=== PATIENT | female | born 1990 | race Caucasian/White ===

== ENCOUNTER 2018-05-01 18:02 | Emergency (ER) | payer SELFPAY ==
[2018-05-01] MEDS ORDERED: NA CHLORIDE 0.9% 1,000 ML ONE (19:22)
[2018-05-01 19:37] LABS: Absolute Lymphocytes (CBC) 2.8 K/uL (0.7-4.9); Absolute Monocytes 0.7 K/uL (0.1-1.3); Absolute Neutrophil 4.6 K/uL (1.8-8.0); Basophils % 1.2 % (0-1.3); Hematocrit 44.2 % (36.0-45.0); Lymphocytes % 33.4 % (15.3-44.8); MPV 8.6 fL (7.6-11.3); Monocytes % 8.5 % (3.3-12.3); RBC Red Blood Cell Count 5.18 M/uL (3.86-4.86)
[2018-05-01 19:53] LABS: Urine Blood NEGATIVE (NEG); Urine Glucose NEGATIVE (NEG); Urine Protein 1+ (NEG)
[2018-05-01 20:09] LABS: Urine Bacteria LOADED /HPF (<20); Urine Culture Reflex Order NOT NEEDED; Urine RBC <5 /HPF (NONE SEEN)
[2018-05-01 20:14] LABS: Albumin 4.2 g/dL (3.4-5.0); Bilirubin Direct 0.2 mg/dL (0-0.2); Bilirubin Total 0.8 mg/dL (0.2-1.0); Potassium 3.2 mmol/L (3.5-5.1); Protein, Total 8.5 g/dL (6.4-8.2)
--- NOTE | 2018-05-01 20:49 | RAD REPORT ---
EXAM DESCRIPTION: CT - Abdomen Pelvis W Contrast - 05/01/2018 8:22 pm CLINICAL HISTORY: Abdominal pain/epigastric pain COMPARISON: none. TECHNIQUE: Computed axial tomography of the abdomen pelvis was obtained. 100 cc Isovue-300 was admin istered intravenously. Oral contrast was not requested which limits evaluation of bowel. All CT scans are performed using dose optimization technique as appropriate and may include automated exposure control or mA/KV adjustment according to patient size. FINDINGS: The liver, spleen, pancreas, adrenal and kidneys appear unremarkable. There is no evidence of diverticulitis. The appendix is retrocecal and normal caliber. A 2 centimeter irregularly-shaped left ovarian cyst likely has recently ruptured with a small amount of free fluid in the pelvis. Bilateral tubal ligation coils are noted. Fluid is present within nondilated small bowel IMPRESSION: A 2 centimeter irregularly-shaped left ovarian cyst likely has recently ruptured with a small amount of free fluid in the pelvis Fluid within nondilated small bowel may indicate an enteritis
--- NOTE | 2018-05-01 21:22 | ER ---
Nurse's Notes [facility] Name: Kenzie Rodriguez Age: 27 yrs Sex: Female : 1990 Arrival Date: 05/01/2018 Time: 18:04 Bed 14 Private MD: JEANE PICHARDO Diagnosis: Unspecified abdominal pain Presentation: 05/01 18:04 Presenting complaint: Patient states: epigastric pain constant throughout the day and sv pain gets worse at night and vomiting/diarrhea x 8 days. Has been seen at [facility] but they were not able to figure out what was wrong. Transition of care: patient was not received from another setting of care. Onset of symptoms was April 23, 2018. Care prior to arrival: None. 18:04 Method Of Arrival: Ambulatory sv 18:04 Acuity: PIA 3 sv 19:15 Risk Assessment: Do you want to hurt yourself or someone else? Patient reports no cc3 desire to harm self or others. Initial Sepsis Screen: Does the patient meet any 2 criteria? No. Patient's initial sepsis screen is negative. Does the patient have a suspected source of infection? No. Patient's initial sepsis screen is negative. Triage Assessment: 19:15 General: Appears in no apparent distress. comfortable, Behavior is calm, cooperative, cc3 appropriate for age. Historical: - Allergies: 18:06 Amoxicillin; sv - PMHx: 18:06 None; sv - PSHx: 18:06 Essure; sv - Immunization history:: Adult Immunizations up to date. - Social history:: Smoking status: Patient/guardian denies using tobacco. - Ebola Screening: : No symptoms or risks identified at this time. Screenin:43 Abuse screen: Denies threats or abuse. Denies injuries from another. Nutritional aj1 screening: No deficits noted. Tuberculosis screening: No symptoms or risk factors identified. 19:15 Fall Risk Ambulatory Aid- None/Bed Rest/Nurse Assist (0 pts). Gait- Normal/Bed cc3 Rest/Wheelchair (0 pts) Mental Status- Oriented to own ability (0 pts). Assessment: 18:43 General: Appears in no apparent distress. comfortable. Pain: Complains of pain in aj1 epigastric area Pain currently is 4 out of 10 on a pain scale. Neuro: Level of Consciousness is awake, alert, obeys commands, Oriented to person, place, time, situation. Cardiovascular: Patient's skin is warm and dry. Respiratory: Airway is patent Respiratory effort is even, unlabored, Respiratory pattern is regular, symmetrical. GI: Abdomen is flat, non-distended, Bowel sounds present X 4 quads. Abd is soft and non tender X 4 quads. Reports upper abdominal pain, diarrhea, nausea, vomiting. : No signs and/or symptoms were reported regarding the genitourinary system. EENT: No signs and/or symptoms were reported regarding the EENT system. Derm: No signs and/or symptoms reported regarding the dermatologic system. Skin is pink, warm \T\ dry. normal. Musculoskeletal: No signs and/or symptoms reported regarding the musculoskeletal system. Circulation, motion, and sensation intact. 19:15 Reassessment: Patient appears in no apparent distress at this time. Patient and/or cc3 family updated on plan of care and expected duration. Pain level reassessed. Patient is alert, oriented x 3, equal unlabored respirations, skin warm/dry/pink. Received this female patient from morning shift JERRY Hayes as a case of abdominal pain still for IV cannulation and phlebotomy. 20:29 Reassessment: Patient appears in no apparent distress at this time. Patient and/or cc3 family updated on plan of care and expected duration. Pain level reassessed. Patient is alert, oriented x 3, equal unlabored respirations, skin warm/dry/pink. Patient came back from CT scan department, awaiting result. 21:44 Reassessment: Patient appears in no apparent distress at this time. Patient and/or cc3 family updated on plan of care and expected duration. Pain level reassessed. Patient is alert, oriented x 3, equal unlabored respirations, skin warm/dry/pink. ZAHRAA Martinez discharged the patient home with prescription given. IV cannula removed and patient left ER vitally stable and ambulatory with her family. Vital Signs: 18:06 BP 132 / 92; Pulse 80; Resp 18; Temp 99; Pulse Ox 99% ; Weight 84.37 kg; Height 5 ft. 3 sv in. (160.02 cm); Pain 4/10; 19:41 BP 121 / 87; Pulse 76; Resp 19 S; Pulse Ox 100% on R/A; cc3 20:30 BP 118 / 73; Pulse 79; Resp 18 S; Pulse Ox 100% on R/A; cc3 21:08 BP 117 / 90; Pulse 81; Resp 19 S; Pulse Ox 99% on R/A; cc3 18:06 Body Mass Index 32.95 (84.37 kg, 160.02 cm) sv ED Course: 18:04 Patient arrived in ED. sb2 18:04 JEANE PICHARDO is Private Physician. sb2 18:06 Triage completed. sv 18:06 Arm band placed on. sv 18:08 Abigail Callaway, JERRY is Primary Nurse. aj1 18:09 Juan Naylor NP is PHCP. pm1 18:09 Tracie Magdaleno MD is Attending Physician. pm1 18:39 Radiology exam delayed due to lab results not completed at this time. (BUN/Creatinine) vm2 test not completed at this time. 18:43 Patient has correct armband on for positive identification. aj1 18:43 No provider procedures requiring assistance completed. aj1 19:30 Inserted saline lock: 20 gauge in right forearm, using aseptic technique. ds4 19:42 Radiology exam delayed due to lab results not completed at this time. (BUN/Creatinine) vm2 test not completed at this time. 19:47 Radiology exam delayed due to lab results not completed at this time. (BUN/Creatinine). vm2 20:15 Patient moved to [place] via wheelchair. eh 20:19 CT completed. Patient tolerated procedure well. eh 20:22 Patient moved back from [place]. eh 21:20 Anirudh Bello MD is Referral Physician. pm1 21:44 IV discontinued, intact, bleeding controlled, No redness/swelling at site. Pressure cc3 dressing applied. Administered Medications: 19:30 Drug: NS 0.9% 1000 ml Route: IV; Rate: 1000 ml; Site: right forearm; cc3 20:45 Follow up: Response: No adverse reaction; IV Status: Completed infusion; IV Intake: cc3 1000ml 21:30 Drug: ProTONIX 40 mg Route: IVP; Site: right forearm; cc3 21:44 Follow up: Response: No adverse reaction cc3 Intake: 20:45 IV: 1000ml; Total: 1000ml. cc3 Outcome: 21:21 Discharge ordered by . pm1 21:44 Patient left the ED. cc3 21:44 Discharged to home ambulatory, with family. cc3 21:44 Condition: stable 21:44 Discharge instructions given to patient, family, Instructed on discharge instructions, follow up and referral plans. medication usage, Demonstrated understanding of instructions, follow-up care, medications, Prescriptions given X 1. Signatures: Abigail Callaway RN RN aj1 Mariama Townsend RN RN Marvel Carroll Donovan ds4 Juan Naylor, ZAHRAA QUARRY PLANT CRUSHER OPERATOR pm1 Liset Stephens 2 Olive Sandoval sb2 Dana Thomas cc3
--- NOTE | 2018-05-01 21:22 | EDPHYS ---
Physician Documentation [facility] Name: Kenzie Rodriguez Age: 27 yrs Sex: Female : 1990 Arrival Date: 05/01/2018 Time: 18:04 Bed 14 Private MD: JEANE PICHARDO ED Physician Tracie Magdaleno HPI: 05/01 18:35 This 27 yrs old Female presents to ER via Ambulatory with complaints of pm1 Abdominal Pain. 18:35 The patient presents with abdominal pain in the epigastric area. Onset: The pm1 symptoms/episode began/occurred 8 day(s) ago. The symptoms do not radiate. Associated signs and symptoms: Pertinent positives: nausea, vomiting, and diarrhea, Pertinent negatives: blood in stools, chest pain, dysuria, fever, shortness of breath, vomiting blood. The symptoms are described as burning. Modifying factors: The symptoms are alleviated by avoiding solid foods. the symptoms are aggravated by food. Severity of pain: in the emergency department the pain has improved. The patient has not experienced similar symptoms in the past. The patient has been recently seen by a physician: the patient's primary care provider, earlier today, Contacted the ER to request patient to be evaluated with CT scan. Patient has been seen at [facility] ER 04/27/2018 and 04/30/2018. Labs were negative at both visits. Had RUQ ultrasound and XR Acute Abdomen series that were both negative. Historical: - Allergies: 18:06 Amoxicillin; sv - PMHx: 18:06 None; sv - PSHx: 18:06 Essure; sv - Immunization history:: Adult Immunizations up to date. - Social history:: Smoking status: Patient/guardian denies using tobacco. - Ebola Screening: : No symptoms or risks identified at this time. ROS: 18:35 Constitutional: Negative for fever, chills, and weight loss, Eyes: Negative for injury, pm1 pain, redness, and discharge, ENT: Negative for injury, pain, and discharge, Neck: Negative for injury, pain, and swelling, Cardiovascular: Negative for chest pain, palpitations, and edema, Respiratory: Negative for shortness of breath, cough, wheezing, and pleuritic chest pain. 18:35 Back: Negative for injury and pain, : Negative for injury, bleeding, discharge, and swelling, MS/Extremity: Negative for injury and deformity, Skin: Negative for injury, rash, and discoloration, Neuro: Negative for headache, weakness, numbness, tingling, and seizure. 18:35 Abdomen/GI: Positive for abdominal pain, nausea, vomiting, and diarrhea, Negative for constipation, hematemesis, black/tarry stool. Exam: 18:35 Constitutional: This is a well developed, well nourished patient who is awake, alert, pm1 and in no acute distress. Head/Face: Normocephalic, atraumatic. Eyes: Pupils equal round and reactive to light, extra-ocular motions intact. Lids and lashes normal. Conjunctiva and sclera are non-icteric and not injected. Cornea within normal limits. Periorbital areas with no swelling, redness, or edema. ENT: Nares patent. No nasal discharge, no septal abnormalities noted. Tympanic membranes are normal and external auditory canals are clear. Oropharynx with no redness, swelling, or masses, exudates, or evidence of obstruction, uvula midline. Mucous membranes moist. Neck: Trachea midline, no thyromegaly or masses palpated, and no cervical lymphadenopathy. Supple, full range of motion without nuchal rigidity, or vertebral point tenderness. No Meningismus. Chest/axilla: Normal chest wall appearance and motion. Nontender with no deformity. No lesions are appreciated. Cardiovascular: Regular rate and rhythm with a normal S1 and S2. No gallops, murmurs, or rubs. No pulse deficits. Respiratory: Lungs have equal breath sounds bilaterally, clear to auscultation and percussion. No rales, rhonchi or wheezes noted. No increased work of breathing, no retractions or nasal flaring. Abdomen/GI: Soft, non-tender, with normal bowel sounds. No distension or tympany. No guarding or rebound. No evidence of tenderness throughout. Back: No spinal tenderness. No costovertebral tenderness. Full range of motion. Skin: Warm, dry with normal turgor. Normal color with no rashes, no lesions, and no evidence of cellulitis. MS/ Extremity: Pulses equal, no cyanosis. Neurovascular intact. Full, normal range of motion. 18:35 Neuro: Orientation: is normal, Motor: is normal, moves all fours, Sensation: is normal, no obvious gross deficits, Gait: is steady, at a normal pace, without difficulty. Vital Signs: 18:06 BP 132 / 92; Pulse 80; Resp 18; Temp 99; Pulse Ox 99% ; Weight 84.37 kg; Height 5 ft. 3 sv in. (160.02 cm); Pain 4/10; 19:41 BP 121 / 87; Pulse 76; Resp 19 S; Pulse Ox 100% on R/A; cc3 20:30 BP 118 / 73; Pulse 79; Resp 18 S; Pulse Ox 100% on R/A; cc3 21:08 BP 117 / 90; Pulse 81; Resp 19 S; Pulse Ox 99% on R/A; cc3 18:06 Body Mass Index 32.95 (84.37 kg, 160.02 cm) sv MDM: 18:09 Patient medically screened. pm1 18:21 ED course: Patient currently without any nausea. Offered pain medication. Patient pm1 refused since she is currently not having pain. 18:43 Data reviewed: vital signs. Data interpreted: Pulse oximetry: on room air is 99 %. pm1 Interpretation: normal. 21:10 Differential diagnosis: appendicitis, cholecystitis, Cholelithiasis, gastritis, pm1 gastroesophageal reflux disease, pancreatitis, Peptic Ulcer Disease, Perf. Duodenal Ulcer, Perf. Gastric Ulcer. 21:20 Counseling: I had a detailed discussion with the patient and/or guardian regarding: the pm1 historical points, exam findings, and any diagnostic results supporting the discharge/admit diagnosis, lab results, radiology results, the need for outpatient follow up, for definitive care, a elevated guard, to return to the emergency department if symptoms worsen or persist or if there are any questions or concerns that arise at home. 21:20 ED course: Patient has protonix, bentyl, zofran, and tramadol prescriptions. She pm1 requested addditional zofran ODT. 05/01 18:21 Order name: Basic Metabolic Panel pm1 05/01 18:21 Order name: CBC with Diff pm1 05/01 18:21 Order name: Creatinine for Radiology pm1 05/01 18:21 Order name: Hepatic Function pm1 05/01 18:21 Order name: Lipase pm1 05/01 19:21 Order name: Urine Microscopic Only ds4 05/01 19:21 Order name: Urine Dipstick--Ancillary (enter results) ds4 05/01 19:21 Order name: Urine --Ancillary (enter results) ds4 05/01 19:50 Order name: CBC with Automated Diff; Complete Time: 19:51 EDMS 05/01 19:53 Order name: Urine --Ancillary; Complete Time: 19:59 EDMS 05/01 19:53 Order name: Urine Dipstick-Ancillary; Complete Time: 19:59 EDMS 05/01 20:05 Order name: Creatinine (Radiology Only); Complete Time: 20:16 EDMS 05/01 20:09 Order name: Urine Microscopic Only; Complete Time: 20:16 EDMS 05/01 20:14 Order name: Basic Metabolic Panel; Complete Time: 20:16 EDMS 05/01 18:21 Order name: IV Saline Lock; Complete Time: 19:32 pm05/01 18:21 Order name: Labs collected and sent; Complete Time: 19:32 pm05/01 18:21 Order name: Urine Dipstick-Ancillary (obtain specimen); Complete Time: 19:21 pm05/01 18:21 Order name: Urine Test (obtain specimen); Complete Time: 19:21 pm05/01 18:21 Order name: CT Abd/Pelvis - W/Contrast: IV contrast only 05/01 20:14 Order name: Liver (Hepatic) Function; Complete Time: 20:16 EDMS 05/01 20:14 Order name: Lipase; Complete Time: 20:16 EDMS 05/01 20:50 Order name: CT; Complete Time: 20:50 EDMS Administered Medications: 19:30 Drug: NS 0.9% 1000 ml Route: IV; Rate: 1000 ml; Site: right forearm; cc3 20:45 Follow up: Response: No adverse reaction; IV Status: Completed infusion; IV Intake: cc3 1000ml 21:30 Drug: ProTONIX 40 mg Route: IVP; Site: right forearm; cc3 21:44 Follow up: Response: No adverse reaction cc3 Disposition: 05/01/18 21:21 Discharged to Home. Impression: Unspecified abdominal pain. - Condition is Stable. - Discharge Instructions: Abdominal Pain, Adult. - Prescriptions for Zofran ODT 4 mg Oral tablet,disintegrating - place 1 tablet by TRANSLINGUAL route every 8 hours As needed; 20 tablet. - Medication Reconciliation Form, Thank You Letter, Prescription Opioid Use form. - Follow up: Emergency Department; When: As needed; Reason: Worsening of condition. Follow up: Anirudh Bello MD; When: 2 - 3 days; Reason: Recheck today's complaints, Continuance of care, Re-evaluation by your physician. - Problem is new. - Symptoms have improved. Addendum: 05/04/2018 07:03 Co-signature as Attending Physician, Tracie Magdaleno MD. m a2 Signatures: Dispatcher [employer] EDMariama Butterfield RN RN sv Juan Naylor, STAFF WRITER STAFF WRITER pm1 Tracie Magdaleno MD MD ma2 Dana Thomas cc3 Corrections: (The following items were deleted from the chart) 05/01 21:44 21:21 05/01/2018 21:21 Discharged to Home. Impression: Unspecified abdominal pain. cc3 Condition is Stable. Forms are Medication Reconciliation Form, Thank You Letter, Antibiotic Education, Prescription Opioid Use. Follow up: Emergency Department; When: As needed; Reason: Worsening of condition. Follow up: Anirudh Bello; When: 2 - 3 days; Reason: Recheck today's complaints, Continuance of care, Re-evaluation by your physician. Problem is new. Symptoms have improved. pm1
[2018-05-01] MEDS ORDERED: PANTOPRAZOLE 40 MG INJ ONE (21:38)
== END 2018-05-01 21:44 | disposition home or self-care (01) ==
LOC: ER 18:02
DX: R10.9 Unspecified abdominal pain (principal); Z88.1 Allergy status to other antibiotic agents
CPT/HCPCS: 36415; 74177; 80048; 80076; 81003; 81015; 81025; 83690; 85025; 96361; 96374; 99284; C9113; J7030; Q9967

== ENCOUNTER 2024-07-17 05:43 | Emergency (ER) | payer BC ==
--- OUTSIDE RECORDS SUMMARY | 2024-07-17 05:45 | XMS REPORT | Continuity of Care Document ---
Author Name Unknown Address [address] [facility] [address] [facility] [address] [place] [address] [facility] Address [address] [facility] [address] [place] [address] Care Team Providers Care Lead Net Software Developer Name Role Phone None, None Primary Care Physician Unavailab Ivette Pinon PA-C Attending Clinician [phone] IVETTE LOPEZ Attending Clinician Unavailable Unknown, Attending Attending Clinician Unavailab Jennifer Penn RN Attending Clinician Unavailable BRENNA ASHLEY Attending Clinician Unavailab Tabitha Paz Attending Clinician [phone] Brenna Corbett Attending Clinician Fang Valadez RN Attending Clinician Unavailab le Doctor Unassigned, Tillar Attending Clinician U Nayeli Etienne APRN Attending Cli nician Payers Payer Name Policy Type Policy Number Effective Date Expirati on Date Source Problems Condition Name Condition Details Condition Category Status Onset Date Resolution Date Last Treatment Date Treating Clinician Comments Source Anxiety and depression Anxiety and depression Disease Active 10-02 00:00: 00 [facility] Allergies, Adverse Reactions, Alerts Allergy Name Allergy Type Status Severity Reaction(s) Onset Date Inactive Date Treating Clinician Comments Source Amoxicil kristie Propensi ty to adverse reaction s Active 10-10 00:00: 00 [facility] PAROXETI NE HCL DRUG INGREDI Active Other-Cmnt 10-02 00:00: 00 [facility] Paroxeti ne Hcl Propensi ty to adverse reaction s Active Other - See comments 10-02 00:00: 00 shaking [facility] AMOXICIL KRISTIE DRUG INGREDI Active Hives 04-27 00:00: 00 [facility] Amoxicil kristie Propensi ty to adverse reaction s Active Hives 04-27 00:00: 00 [facility] Social History Social Habit Start Date Stop Date Quantity Comments Source [facility] function 2024-04-01 00:00:00 2024-04-01 00:00:00 [facility] Exposure to SARS-CoV-2 (event) 2021-10-22 00:00:00 2021-11-01 14:24:00 Not sure [facility] Alcohol intake 2021-11-01 00:00:00 2021-11-01 00:00:00 Current non-drinker of alcohol (finding) [facility] Alcoholic beverage intake 2021-11-01 00:00:00 2021-11-01 00:00:00 Current non-drinker of alcohol (finding) [facility] Tobacco use and exposure 2021-11-01 00:00:00 2021-11-01 00:00:00 Smokeless tobacco non-user [facility] Sex assigned at 1990 00:00:00 1990 00:00:00 [facility] Smoking Status Start Date Stop Date Source Never smoked tobacco [facility] Medications Ordered Medication Name Filled Medication Name Start Date Stop Date Current Medication? Ordering Clinician Indication Dosage Frequency Signature (SIG) Comments Components Source metroNIDAZO LE 500 mg tablet 2023-04 00:00: 00 Yes [id number] 500mg Take 1 tablet by mouth every 12 (twelve) hours. [facility] lidocaine 2 % mucosal jelly 2023-04 00:00: 00 Yes [id number] .5[in_u s] Apply 0.5 Inches to area(s) in the morning and 0.5 Inches at noon and 0.5 Inches in the evening. [facility] valACYclovi r (VALTREX) 1 gram tablet 2023-04 00:00: 00 04-09 05:59 :00 No [id number] 1g Take 1 tablet by mouth in the morning and 1 tablet at noon and 1 tablet in the evening. Do all this for 7 days. [facility] No known medications 10-10 15:28: 13 No No known medication [facility] BUSPIRONE 15 mg tablet 11-09 00:00: 00 Yes [id number] TAKE 1/2 TO 1 TABLET BY MOUTH TWICE DAILY [facility] BUPROPION XL 150 mg 24 hr tablet 11-09 00:00: 00 Yes [id number] 150mg TAKE 1 TABLET BY MOUTH DAILY [facility] Vital Signs Vital Name Observation Time Observation Value Comments S [facility] Systolic blood pressure 2024-04-02 02:25:00 111 mm[Hg] [facility] Diastolic blood pressure 2024-04-02 02:25:00 78 mm[Hg] [facility] Heart rate 2024-04-02 02:25:00 90 /min [facility] Body temperature 2024-04-02 02:25:00 36.78 Maryellen [facility] Respiratory rate 2024-04-02 02:25:00 18 /min [facility] Body height 2024-04-02 02:25:00 152.4 cm [facility] Body weight 2024-04-02 02:25:00 61.508 kg [facility] BMI 2024-04-02 02:25:00 26.48 kg/m2 [facility] Oxygen saturation in Arterial blood by Pulse oximetry 2024-04-02 02:25:00 98 /min [facility] Systolic blood pressure 2021-11-01 19:26:00 105 mm[Hg] [facility] Diastolic blood pressure 2021-11-01 19:26:00 76 mm[Hg] [facility] Heart rate 2021-11-01 19:26:00 116 /min [facility] Body temperature 2021-11-01 19:26:00 37.11 Maryellen [facility] Respiratory rate 2021-11-01 19:26:00 16 /min [facility] Body height 2021-11-01 19:26:00 160 cm [facility] Body weight 2021-11-01 19:26:00 93.214 kg [facility] BMI 2021-11-01 19:26:00 36.40 kg/m2 [facility] Oxygen saturation in Arterial blood by Pulse oximetry 2021-11-01 19:26:00 98 /min [facility] acute [facility] Systolic blood pressure 2021-10-10 20:30:00 118 mm[Hg] [facility] Diastolic blood pressure 2021-10-10 20:30:00 84 mm[Hg] [facility] Heart rate 2021-10-10 20:30:00 78 /min [facility] Body temperature 2021-10-10 20:30:00 36.67 Maryellen [facility] Body weight 2021-10-10 20:30:00 [facility] Procedure Date / Time Performed Performing Clinician Source POCT TEST 2024-04-02 02:31:00 Jim Lopez [facility] POCT MOLECULAR STREP 2021-11-01 19:29:00 Leland Ashley [facility] ASSIGNMENT OF BENEFITS 2021-11-01 19:15:22 Docto r Unassigned, Tillar [facility] SURESWAB ADVANCED VAGINITIS PLUS, TMA 2021-10-10 21:24:00 Nayeli Hale [facility] THINPREP TIS PAP RFLX HPV MRNA E6/E7,C. TRACH, N. GONORRHOEAE 2021-10-10 21:23:00 Nayeli Hale [facility] Encounters Start Date/Time End Date/Time Encounter Type Admission Type Attending Clinicians Care Facility Care Department Encounter ID Source 2024-04-06 00:00:00 2024-04-07 13:13:47 [facility] 1..840.114 350.1.13.10 4.2.7.2.686 [id number] [facility] 2024-04-02 00:00:00 2024-04-02 15:17:47 Case Management Ivette Lopez [facility] 1..840.114 350.1.13.10 4.2.7.2.686 [id number] [facility] 2024-04-01 20:20:00 2024-04-01 20:44:57 Outpatient R IVETTE LOPEZ [facility] [id number] [facility] 2024-04-01 20:20:00 2024-04-01 20:44:57 Urgent Care Ivette Lopez Unknown, [facility] 1..840.114 350.1.13.10 4.2.7.2.686 [id number] [facility] 2021-11-02 00:00:00 2021-11-02 00:00:00 Telephone Jennifer Silva [facility] 1..840.114 350.1.13.10 4.2.7.2.686 [id number] [facility] 2021-11-01 14:00:00 2021-11-01 15:19:56 Outpatient R BRENNA ASHLEY [facility] [id number] [facility] 2021-11-01 14:00:00 2021-11-01 14:20:00 Urgent Care Tabitha He Kimberly J [facility] 1..840.114 350.1.13.10 4.2.7.2.686 [id number] [facility] 2021-11-01 00:00:00 2021-11-01 00:00:00 Telephone Fang Valadez Meagen [facility] 1.2.840.114 350.1.13.58 9.2.7.2.686 [id number] [facility] 2021-11-01 00:00:00 2021-11-01 00:00:00 Orders Only Doctor Unassigned, Tillar [facility] 1.2.840.114 350.1.13.10 4.2.7.2.686 [id number] [facility] 2021-10-22 00:00:00 2021-10-22 00:00:00 Telephone Fang Valadez Meagen [facility] 1.2.840.114 350.1.13.58 9.2.7.2.686 [id number] [facility] 2021-10-12 00:00:00 2021-10-12 00:00:00 Telephone Fang Valadez Meagen [facility] 1.2.840.114 350.1.13.58 9.2.7.2.686 [id number] [facility] 2021-10-10 15:30:00 2021-10-10 16:24:31 Office Visit Nayeli Hale Y[facility] 1.2.840.114 350.1.13.58 9.2.7.2.686 [id number] [facility] Results Test Description Test Time Test Comments Results Result Co mments Source [facility] [id number] 19:39:04* Test Item Value Reference Range Interpretation Comme nts POCT Molecular Strep (test c ode = 06074-4) Negative Negative Lab Interpretation (test cod e = 97728-5) Normal [facility] T[facility] PAP RFLX HPV MRNA E6/E7,C. TRACH, N. [id number] 20:00:00* Test Item Value Reference Range Interpretation Comments CLINICAL INFORMATION: (test code = 64492-2) SEE NOTE None given LMP: (test code = 8665-2) SEE NOTE NONE GIVEN PREV. PAP: (test code = 26246-7) SEE NOTE NONE GIVEN PREV. BX: (test code = 29956-6) SEE NOTE NONE GIVEN SOURCE: (test code = 91913-4) SEE NOTE None given STATEMENT OF ADEQUACY: (test code = 77036-8) SEE NOTE Satisfactory for evaluation.Endocervic al/transformation zone componentpresent.Age and/or menstrual status not provided INTERPRETATION/RE SULT: (test code = 18777-2) SEE NOTE Negative for intraepithelial lesion or malignancy. COMMENT: (test code = 44885-6) SEE NOTE This Pap test loera s been evaluated with computerassisted technology. FILM EXAMINER: (test code = 69829-5) SEE NOTE DXG, CT(ASCP) 3 HOUR SPECIMEN (test code = 059701798) SEE NOTE EXPLANATORY NOTE : The Pap is a screening test for cervical cancer. It is not a diagnostic test and is subject to false negative and false positive results. It is most reliable when a satisfactory sample, regularly obtained, is submitted with relevant clinical findings and history, and when the Pap result is evaluated along with historic and current clinical information. CHLAMYDIA TRACHOMATIS RNA, TMA, UROGENITAL (test code = 38321-6) NOT DETECTED NOT DETECTED NEISSERIA GONORRHOEAE RNA, TMA, UROGENITAL (test code = 37355-9) NOT DETECTED NOT DETECTED (Always Message) (test code = 941617002) SEE NOTE The analytical performance characteristics of thisassay, when used to test SurePath(TM) specimens have beendetermined by [employer]. The modifications havenot been cleared or approved by the FDA. This assay hasbeen validated pursuant to the CLIA regulations and isused for clinical purposes. For additional information, please refer totps://education.[employer].Velti/f aq/WCC935(This link is being provided for information/education al purposes only.) ANCELMO (test code = ANCELMO) Performing Organization Information: ? ?Site ID: [id number] ? ?Name: [facility] ? ?Address: [address] [place] [address] [place] [address] ? ?Director: BRANDON YANES MD [facility] ADVANCED VAGINITIS PLUS, [id number] 09:00:00* Test Item Value Reference Range Interpretation Comme nts SURESWAB ADVANCED BACTERIAL VAGINOSIS (BV), (test code = 14532-3) POSITIVE NEGATIVE A LAZARA: (test code = 91813-8) NOT DETECTED NOT DETECTED Lazara glabrata, MAHSA (test code = 44707-1) NOT DETECTED NOT DETECTED Lazara species C. albicans, C. tropicalis,C. parapsilosis, and/or C. dubliniensis can be detected,but not differentiated, in the Lazara spp. result. SURESWAB(R) TRICHOMONAS VAGINALIS RNA, QL, TMA (test code = 56800-8) NOT DETECTED NOT DETECTED CHLAMYDIA TRACHOMATIS RNA, TMA, UROGENITAL (test code = 00247-8) NOT DETECTED NOT DETECTED NEISSERIA GONORRHOEAE RNA, TMA, UROGENITAL (test code = 18334-9) NOT DETECTED NOT DETECTED For additional information, please refer tohttps://educati on.[employer]/faq/XIA769 (This link is being provided for information/educa tional purposes only.) RAC (test code = RAC) Performing Organization Information: ? ?Site ID: [id number] ? ?Name: [facility] ? ?Address: [address] [place] [address] [place] [address] ? 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 If after completion sx do not improve, pt to rtc. Please inform patient. Thank you, Ivette Lopez PA-C [facility] 2024-04-06 14:52:21 Patient is returning a call she missed from the clinic [facility]
[2024-07-17 07:21] LABS: Absolute Basophils 0.1 K/uL (0-0.5); Absolute Eosinophils 0.2 K/uL (0-0.5); Absolute Lymphocytes (CBC) 1.3 K/uL (0.7-4.9); Absolute Monocytes 0.5 K/uL (0.1-1.3); Basophils % 1.4 % (0-1.3); Eosinophils % 2.5 % (0-4.4); Hemoglobin 10.1 g/dL (12.0-15.0); Lymphocytes % 16.1 % (15.3-44.8); MCH 23.8 pg (27.0-35.0); MCHC 32.6 g/dL (32.0-36.0); MCV 73.1 fL (80-100); MPV 9.4 fL (7.6-11.3); Monocytes % 6.4 % (3.3-12.3); Neutrophils % 73.6 % (41.7-73.7); Nucleated Red Blood Cells % 0.1 % (0-0); Platelets 270 thou/uL (152-406); RBC Red Blood Cell Count 4.23 M/uL (3.86-4.86); Red Cell Distribution Width 15.5 % (12.1-15.2)
[2024-07-17 07:25] LABS: Specific Gravity 1.007 (1.005-1.030); Sqamous Epithelial <5 /HPF (None Seen); Urine Bacteria <20 /HPF (<20); Urine Bilirubin NEGATIVE (Negative); Urine Blood Negative (Negative); Urine Clarity Clear (Clear); Urine Color Colorless (Yellow); Urine Culture Reflex Order NOT NEEDED; Urine Glucose NEGATIVE (Negative); Urine Ketones NEGATIVE (Negative); Urine Micro Reflex YN NO BILL MICROSCOPIC; Urine Nitrite NEGATIVE (Negative); Urine Protein NEGATIVE (Negative); Urine RBC <5 /HPF (None Seen); Urine Urobilinogen Normal (Normal); Urine WBC <5 /HPF (<5)
[2024-07-17 07:26] LABS: Specific Gravity 1.007 (1.005-1.030)
[2024-07-17 07:35] LABS: Anion Gap 7.8 mEq/L (5.0-15.0); Potassium 3.8 mEq/L (3.5-5.1); Troponin High Sensitivity 3.1 pg/mL (<58.9)
[2024-07-17] MEDS ORDERED: ONDANSETRON 4 MG/2 ML VIAL ONE (07:37)
[2024-07-17] MEDS ORDERED: KETOROLAC 30 MG/ML INJ ONE (07:37)
--- NOTE | 2024-07-17 07:41 | RAD REPORT ---
Procedure: Chest Pa And Lat (2 Views) HISTORY: Chest pain COMPARISON: none FINDINGS: The lungs appear clear of acute infiltrate. No significant pleural effusion noted. The heart is normal size. IMPRESSION: No acute abnormality is displayed.
--- NOTE | 2024-07-17 08:11 | ER ---
Nurse's Notes [facility] Name: Kenzie Rodriguez Age: 34 yrs Sex: Female : 1990 Arrival Date: 07/17/2024 Time: 05:43 Bed 14 Private MD: Diagnosis: Chest wall pain Presentation: 07/17 06:04 Chief complaint: Patient states: chest pain that woke her up from her sleep. States cp4 pain travels down the left arm. Coronavirus screen: Client denies travel out of the [place] in the last 14 days. At this time, the client does not indicate any symptoms associated with coronavirus-19. Ebola Screen: Patient negative for fever greater than or equal to 101.5 degrees Fahrenheit, and additional compatible Ebola Virus Disease symptoms Patient denies exposure to infectious person. Patient denies travel to an Ebola-affected area in the 21 days before illness onset. No symptoms or risks identified at this time. Initial Sepsis Screen: Does the patient meet any 2 criteria? No. Patient's initial sepsis screen is negative. Does the patient have a suspected source of infection? No. Patient's initial sepsis screen is negative. Risk Assessment: Do you want to hurt yourself or someone else? Patient reports no desire to harm self or others. Onset of symptoms was July 17, 2024 at 04:30. 06:04 Method Of Arrival: Ambulatory cp4 06:04 Acuity: PIA 3 cp4 Triage Assessment: 06:06 General: Appears in no apparent distress. uncomfortable, Behavior is calm, cooperative, cp4 appropriate for age. Pain: Complains of pain in chest Pain radiates to left arm Pain currently is 6 out of 10 on a pain scale. EENT: No signs and/or symptoms were reported regarding the EENT system. Neuro: Level of Consciousness is awake, alert, obeys commands, Oriented to person, place, time, situation. Cardiovascular: Patient's skin is warm and dry. Rhythm is sinus rhythm. Respiratory: Airway is patent Respiratory effort is even, unlabored. GI: No signs and/or symptoms were reported involving the gastrointestinal system. : No signs and/or symptoms were reported regarding the genitourinary system. Derm: No signs and/or symptoms reported regarding the dermatologic system. Musculoskeletal: No signs and/or symptoms reported regarding the musculoskeletal system. 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 - Infectious Disease History:: Denies. - Social history:: Smoking status: Patient denies any tobacco usage or history of. - Family history:: not pertinent. Screenin:[address] [facility] ED Fall Risk Assessment (Adult) History of falling in the last 3 months, cp4 including since admission No falls in past 3 months (0 pts) Confusion or Disorientation No (0 pts) Intoxicated or Sedated No (0 pts) Impaired Gait No (0 pts) Mobility Assist Device Used No (0 pt) Altered Elimination No (0 pt) Score/Fall Risk Level 0 - 2 = Low Risk Oriented to surroundings, Maintained a safe environment, Assessed \T\ reinforced patient's understanding of fall precautions, Hourly rounding (assess needs \T\ fall precautionary measures) done. Abuse screen: Denies threats or abuse. Denies injuries from another. Nutritional screening: No deficits noted. Tuberculosis screening: No symptoms or risk factors identified. Assessment: 06:08 Pain: Pain radiates to left arm Pain began 1 hour ago. Cardiovascular: Patient's skin cp4 is warm and dry. Rhythm is sinus rhythm. 08:05 Reassessment: Patient appears in no apparent distress at this time. Patient is alert, bp oriented x 3, equal unlabored respirations, skin warm/dry/pink. Vital Signs: 06:04 BP 107 / 75; Pulse 75; Resp 16; Temp 97.8; Pulse Ox 100% ; Weight 62.14 kg; Height 5 cp4 ft. 3 in. ; Pain 6/10; 08:04 BP 113 / 68; Pulse 64; Resp 16; Pulse Ox 99% ; bp 06:04 Body Mass Index 24.27 (62.14 kg, 160.02 cm) cp4 06:04 Pain Scale: Adult cp4 ED Course: 05:45 Patient arrived in ED. jj6 06:04 Nirmala Mosher is Primary Nurse. cp4 06:06 Triage completed. cp4 06:06 Arm band placed on right wrist. Patient placed in waiting room. cp4 06:08 Bed in low position. Call light in reach. Side rails up X 1. Client placed on cp4 continuous cardiac and pulse oximetry monitoring. NIBP monitoring applied. case monitor on. Pulse ox on. NIBP on. 06:08 No provider procedures requiring assistance completed. Patient maintains SpO2 cp4 saturation greater than 95% on room air. 06:14 EKG done, by ED staff. hw 06:54 Missed attempt(s): 22 gauge in left antecubital area. cp4 06:54 Missed attempt(s): 22 gauge in right antecubital area. cp4 07:04 XRAY Chest Pa And Lat (2 Views) In Process Unspecified. EDMS 07:04 Rico Galicia MD is Attending Physician. rt 07:09 Initial lab(s) drawn, by me, sent to lab. Inserted saline lock: 22 gauge in left bp forearm, using aseptic technique. Blood collected. 08:21 IV discontinued, intact, bleeding controlled, No redness/swelling at site. Pressure bp dressing applied. 08:22 Provided Education on: NA. bp Administered Medications: 07:15 Drug: Ketorolac IVP 15 mg IVP once Route: IVP; Site: left forearm; bp 07:40 Follow up: Response: No adverse reaction bp 07:15 Drug: Ondansetron IVP 4 mg IVP once; over 2 minutes Route: IVP; Site: left forearm; bp 07:40 Follow up: Response: No adverse reaction bp Medication: 06:08 VIS not applicable for this client. cp4 Outcome: 08:11 Discharge ordered by . rt 08:21 Discharged to home ambulatory, with family, bp 08:21 Condition: stable 08:21 Discharge instructions given to patient, Instructed on discharge instructions, follow up and referral plans. Demonstrated understanding of instructions, follow-up care, 08:22 Patient left the ED. bp Signatures: Dispatcher [employer] EDRI Arvind Bobo, RN RN bp Angelica Valdivia jj6 Rico Galicia MD MD rt Nirmala Mosher cp4 Priyanka Alcantar
--- NOTE | 2024-07-17 08:11 | EDPHYS ---
Physician Documentation [facility] Name: Kenzie Rodriguez Age: 34 yrs Sex: Female : 1990 Arrival Date: 07/17/2024 Time: 05:43 Bed 14 Private MD: ED Physician Rico Galicia HPI: 07/17 10:36 This 34 yrs old Female presents to ER via Ambulatory with complaints of Chest Pain, rt Shortness Of Breath, Chest Wall Pain. 10:36 Patient presents to the ED with a left-sided chest pain that radiated down her arm, rt worse with deep inspiration. Reports some mild dyspnea. Denies other acute complaints at this time, symptoms are moderate in severity, no other aggravating or alleviating factors.. 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 - Infectious Disease History:: Denies. - Social history:: Smoking status: Patient denies any tobacco usage or history of. - Family history:: not pertinent. ROS: 10:36 Constitutional: Negative for fever, chills, and weight loss, Abdomen/GI: Negative for rt abdominal pain, nausea, vomiting, diarrhea, and constipation, MS/Extremity: Negative for injury and deformity, Skin: Negative for injury, rash, and discoloration, Neuro: Negative for headache, weakness, numbness, tingling, and seizure, 10:36 Cardiovascular: Positive for chest pain, Negative for edema, 10:36 Respiratory: Positive for shortness of breath, Negative for cough, Exam: 10:36 Constitutional: This is a well developed, well nourished patient who is awake, alert, rt and in no acute distress. Head/Face: Normocephalic, atraumatic. Cardiovascular: Regular rate and rhythm with a normal S1 and S2. No gallops, murmurs, or rubs. Normal PMI, no JVD. No pulse deficits. Respiratory: Lungs have equal breath sounds bilaterally, clear to auscultation and percussion. No rales, rhonchi or wheezes noted. No increased work of breathing, no retractions or nasal flaring. Abdomen/GI: Soft, non-tender, with normal bowel sounds. No distension or tympany. No guarding or rebound. No evidence of tenderness throughout. Skin: Warm, dry with normal turgor. Normal color with no rashes, no lesions, and no evidence of cellulitis. MS/ Extremity: Pulses equal, no cyanosis. Neurovascular intact. Full, normal range of motion. Neuro: Awake and alert, GCS 15, oriented to person, place, time, and situation. Cranial nerves II-XII grossly intact. Motor strength 5/5 in all extremities. Sensory grossly intact. Cerebellar exam normal. Normal gait. 10:36 Chest/axilla: Palpation over anterior chest wall reproduces chest pain. 10:36 ECG was reviewed by the Attending Physician. Vital Signs: 06:04 BP 107 / 75; Pulse 75; Resp 16; Temp 97.8; Pulse Ox 100% ; Weight 62.14 kg; Height 5 cp4 ft. 3 in. ; Pain 6/10; 08:04 BP 113 / 68; Pulse 64; Resp 16; Pulse Ox 99% ; bp 06:04 Body Mass Index 24.27 (62.14 kg, 160.02 cm) cp4 06:04 Pain Scale: Adult cp4 MDM: 07:10 Medical Screening Exam initiated rt 10:36 Differential diagnosis: Chest wall pain, pneumonia, pneumothorax, ACS. HEART Score: rt History: Slightly Suspicious (0), ECG: Normal (0), Age: < or = 45 years (0), Risk Factors: No Risk Factors Known (0), Troponin: < or = 1 x Normal Limit (0), Total Score = 0. Data reviewed: vital signs, nurses notes, lab test result(s), EKG, radiologic studies. I considered the following discharge prescriptions or medication management in the emergency department Medications were administered in the Emergency Department. See MAR. Independent interpretation of the following test(s) in the Emergency Department X-Ray: My interpretation is No infiltrate seen on interpretation of x-ray images. Test considered but Not performed: CT: Low suspicion for PE, PE RC negative, CT angiogram not indicated to rule out pulmonary embolus. Counseling: I had a detailed discussion with the patient and/or guardian regarding the historical points, exam findings, and any diagnostic results supporting the discharge/admit diagnosis, lab results, radiology results, the need for outpatient follow up, to return to the emergency department if symptoms worsen or persist or if there are any questions or concerns that arise at home. Response to treatment: the patient's symptoms have markedly improved after treatment. 07/17 06:37 Order name: Basic Metabolic Panel; Complete Time: 07:57 3 07/17 06:37 Order name: CBC with Diff; Complete Time: 07:57 07/17 06:37 Order name: Troponin HS; Complete Time: 07:57 3 07/17 06:37 Order name: Urinalysis W/Microscopic; Complete Time: 07:57 07/17 06:37 Order name: Test, Urine; Complete Time: 07:57 07/17 06:38 Order name: XRAY Chest Pa And Lat (2 Views); Complete Time: 07:57 3 07/17 06:37 Order name: Cardiac monitoring; Complete Time: 06:38 3 07/17 06:37 Order name: EKG - Nurse/Tech; Complete Time: 06:38 [facility] 07/17 06:37 Order name: IV Saline Lock; Complete Time: 07:08 07/17 06:37 Order name: Labs collected and sent; Complete Time: 07:08 07/17 06:37 Order name: O2 Per Protocol; Complete Time: 06:38 3 07/17 06:37 Order name: O2 Sat Monitoring; Complete Time: 06:38 lg3 EC:36 Rate is 75 beats/min. Rhythm is regular, Normal Sinus Rhythm with No ectopy. QRS [place] rt is Normal. MA interval is normal. QRS interval is normal. QT interval is normal. No Q waves. T waves are Normal. No ST changes noted. Interpreted by me. Administered Medications: 07:15 Drug: Ketorolac IVP 15 mg IVP once Route: IVP; Site: left forearm; bp 07:40 Follow up: Response: No adverse reaction bp 07:15 Drug: Ondansetron IVP 4 mg IVP once; over 2 minutes Route: IVP; Site: left forearm; bp 07:40 Follow up: Response: No adverse reaction bp Disposition Summary: 07/17/24 08:11 Discharge Ordered Notes: Location: Home rt Problem: new rt Symptoms: have improved rt Condition: Stable rt Diagnosis - Chest wall pain rt Followup: rt - With: Private Physician - When: 2 - 3 days - Reason: Discharge Instructions: - Discharge Summary Sheet rt - Chest Wall Pain rt Forms: - Medication Reconciliation Form rt - Antibiotic Education rt - Prescription Opioid Use rt - Patient Portal Instructions rt - Leadership Thank You Letter rt Signatures: Dispatcher [employer] Arvind Rosario, RN RN Iliana Taylor RN RN lg3 Rico Galicia MD MD rt Nirmala Mosher cp4 Corrections: (The following items were deleted from the chart) 06:37 06:37 BASIC METABOLIC PANEL+C.LAB.BRZ ordered. EDMS EDMS 06:37 06:37 CBC+H.LAB.BRZ ordered. EDMS EDMS 06:37 06:37 Troponin High Sensitivity+C.LAB.BRZ ordered. EDMS EDMS 06:37 06:37 Urinalysis W/Microscopic+U.LAB.BRZ ordered. EDMS EDMS 06:37 06:37 Test, Urine+UC.LAB.BRZ ordered. EDMS EDMS 06:37 06:37 Chest Single View+RAD.RAD.BRZ ordered. EDMS EDMS
[2024-07-17 08:32] VITALS: TEMP 97.8
[2024-07-17 08:38] VITALS: BP 113/68; O2SAT 99
== END 2024-07-17 08:22 | disposition home or self-care (01) ==
LOC: ER 05:43
DX: R07.89 Other chest pain (principal); R06.00 Dyspnea, unspecified
CPT/HCPCS: 93005; 85025; 81001; 80048; 36415; 81025; 84484; 71046; 96375; 96374; 99285; J2405